=== PATIENT | male | born 1970 | race Caucasian/White ===

== ENCOUNTER 2022-01-24 12:39 | Outpatient (CLI) | payer OTHER, SELFPAY | END 2022-01-24 12:40 | disposition home or self-care (01) | PROVIDERS: PCP Family Medicine; Visit Provider Family Medicine | DX: M54.16 Radiculopathy, lumbar region (principal); M51.26 Other intervertebral disc displacement, lumbar region | CPT/HCPCS: 62323; J0702; Q9966 ==

== ENCOUNTER 2022-02-28 09:09 | Outpatient (CLI) | payer OTHER, SELFPAY | END 2022-02-28 09:10 | disposition home or self-care (01) | LOC: INJ CL 09:09 | PROVIDERS: PCP Family Medicine; Visit Provider Family Medicine | DX: M54.16 Radiculopathy, lumbar region (principal); M51.36 Other intervertebral disc degeneration, lumbar region | CPT/HCPCS: 64483; J1100; Q9966 ==